=== PATIENT | female | born 1950 | race Caucasian/White ===

== ENCOUNTER 2016-07-26 12:30 | Outpatient (CLI) | payer BC | END 2016-07-26 12:31 | disposition home or self-care (01) | DX: K21.9 Gastro-esophageal reflux disease without esophagitis (principal) ==

== ENCOUNTER 2016-08-12 08:35 | Outpatient (CLI) | payer BC | END 2016-08-12 08:36 | disposition home or self-care (01) | DX: K21.9 Gastro-esophageal reflux disease without esophagitis (principal) ==

== ENCOUNTER 2017-06-26 09:41 | Outpatient (CLI) | payer MEDICARE, BC ==
[2017-06-26 17:44] LABS: BASOPHILS % (AUTO) 0.5 %; EOSINOPHILS # (AUTO) 0.2 10^3/uL (0.0-0.7); EOSINOPHILS % (AUTO) 2.9 %; HCT - HEMATOCRIT 42.6 % (37.0-47.0); LYMPHOCYTES # (AUTO) 2.7 10^3/uL (1.5-3.5); LYMPHOCYTES % (AUTO) 33.4 %; MEAN CORPUSCULAR HEMOGLOBIN 30.6 pg (27.0-31.0); MEAN CORPUSCULAR HGB CONC 32.8 g/dL (32.0-36.0); MEAN CORPUSCULAR VOLUME 93.4 fL (81.0-99.0); MEAN PLATELET VOLUME 9.6 fL (7.9-10.8); MONOCYTES # (AUTO) 0.6 10^3/uL (0.0-1.0); MONOCYTES % (AUTO) 7.5 %; NEUTROPHILS # (AUTO) 4.6 10^3/uL (1.5-6.6); NEUTROPHILS % (AUTO) 55.7 %; RED BLOOD COUNT 4.57 10^6/uL (4.20-5.40); RED CELL DISTRIBUTION WIDTH 13.5 % (12.0-15.0); UNCORRECTED WHITE BLOOD COUNT 8.2 x10^3/uL; WHITE BLOOD COUNT 8.2 x10^3/uL (4.8-10.8)
[2017-06-26 18:04] LABS: HEMOGLOBIN A1C 0.62 g/dL
[2017-06-26 18:12] LABS: ALBUMIN/GLOBULIN RATIO 1.4 (1.0-2.2); BILIRUBIN,TOTAL 0.5 mg/dL (0.2-1.0); BUN - BLOOD UREA NITROGEN 17 mg/dL (6-20); CALCIUM 9.4 mg/dL (8.5-10.3); CARBON DIOXIDE - CO2 28 mmol/L (21-32); CHLORIDE 105 mmol/L (101-111); CHOL/HDL RATIO 3.6 (<4.4); CHOLESTEROL 147 mg/dL; CREATININE 0.9 mg/dL (0.4-1.0); GFR - MDRD 63 (>89); GLUCOSE 105 mg/dL (70-100); HDL CHOLESTEROL 41 mg/dL; LDL/HDL RATIO 1.6 (<4.4); POTASSIUM 4.3 mmol/L (3.5-5.0); SODIUM 138 mmol/L (135-145); TRIGLYCERIDES 203 mg/dL; VLDL CHOLESTEROL 41 mg/dL
== END 2017-06-26 09:42 | disposition home or self-care (01) ==
LOC: LAB.F 09:41
PROVIDERS: ATTEND Physician Assistant Medical
DX: Z51.81 Encounter for therapeutic drug level monitoring (principal); E11.9 Type 2 diabetes mellitus without complications; E78.5 Hyperlipidemia, unspecified; E03.9 Hypothyroidism, unspecified
CPT/HCPCS: 36415; 80053; 80061; 83036; 84443; 85025

== ENCOUNTER 2018-01-02 07:42 | Outpatient (CLI) | payer MEDICARE, BC ==
[2018-01-02 11:46] LABS: ALBUMIN/GLOBULIN RATIO 1.3 (1.0-2.2); ALKALINE PHOSPHATASE 40 IU/L (42-121); ALT ALANINE AMINOTRANSFERASE 33 IU/L (10-60); AST ASPARTATE AMINOTRANSFERASE 32 IU/L (10-42); BILIRUBIN,TOTAL 0.7 mg/dL (0.2-1.0); BUN - BLOOD UREA NITROGEN 20 mg/dL (6-20); CALCIUM 9.5 mg/dL (8.5-10.3); CARBON DIOXIDE - CO2 29 mmol/L (21-32); CHLORIDE 101 mmol/L (101-111); CHOL/HDL RATIO 3.5 (<4.4); CHOLESTEROL 156 mg/dL; CREATININE 0.8 mg/dL (0.4-1.0); GFR - MDRD 72 (>89); GLUCOSE 119 mg/dL (70-100); HDL CHOLESTEROL 44 mg/dL; LDL CHOLESTEROL,CALCULATED 70 mg/dL; LDL/HDL RATIO 1.6 (<4.4); SODIUM 137 mmol/L (135-145); TOTAL PROTEIN 7.1 g/dL (6.7-8.2); VLDL CHOLESTEROL 42 mg/dL
[2018-01-02 12:17] LABS: HEMOGLOBIN A1C 0.62 g/dL; HEMOGLOBIN A1C % 5.7 % (4.6-6.2)
== END 2018-01-02 07:43 | disposition home or self-care (01) ==
LOC: LAB.F 07:42
PROVIDERS: ATTEND Internal Medicine
DX: E78.5 Hyperlipidemia, unspecified (principal); E11.9 Type 2 diabetes mellitus without complications; E03.9 Hypothyroidism, unspecified
CPT/HCPCS: 36415; 80053; 80061; 82043; 83036; 83721; 84443

== ENCOUNTER 2018-09-24 10:27 | Outpatient (CLI) | payer MEDICARE, BC ==
[2018-09-24 18:18] LABS: ALBUMIN 4.1 g/dL (3.2-5.5); ALBUMIN/GLOBULIN RATIO 1.5 (1.0-2.2); BILIRUBIN,TOTAL 0.6 mg/dL (0.2-1.0); CALCIUM 9.5 mg/dL (8.5-10.3); CREATININE 0.8 mg/dL (0.4-1.0); TOTAL PROTEIN 6.9 g/dL (6.7-8.2)
[2018-09-24 18:26] LABS: CREATININE,URINE 144.6 mg/dL; MICROALBUM/CREATININE RATIO,UR 2.8 ug/mg (<30.0); MICROALBUMIN,URINE 0.4 mg/dL (0-300.0)
[2018-09-24 18:45] LABS: HEMOGLOBIN A1C 0.6 g/dL; HEMOGLOBIN A1C % 5.8 % (4.6-6.2)
== END 2018-09-24 10:28 | disposition home or self-care (01) ==
LOC: LAB.F 10:27
PROVIDERS: ATTEND Internal Medicine
DX: E11.9 Type 2 diabetes mellitus without complications (principal); E03.9 Hypothyroidism, unspecified
CPT/HCPCS: 36415; 80053; 82043; 82570; 83036; 84443

== ENCOUNTER 2019-02-28 11:43 | Outpatient (CLI) | payer MEDICARE, BC | END 2019-02-28 11:44 | disposition EMS.NT | LOC: EMS 11:43 | PROVIDERS: ATTEND Surgery | DX: Z04.1 Encounter for examination and observation following transport accident (principal) ==

== ENCOUNTER 2019-03-03 13:19 | Outpatient (CLI) | payer OTHER, MEDICARE, BC ==
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
== END 2019-03-03 13:20 | disposition home or self-care (01) ==
LOC: DI.S 13:19
PROVIDERS: ATTEND Registered Nurse
DX: M51.37 Other intervertebral disc degeneration, lumbosacral region (principal); M47.816 Spondylosis without myelopathy or radiculopathy, lumbar region; M41.86 Other forms of scoliosis, lumbar region; M50.31 Other cervical disc degeneration, high cervical region
CPT/HCPCS: 72050; 72100; 72170

== ENCOUNTER 2019-12-09 07:54 | Outpatient (CLI) | payer MEDICARE, BC ==
[2019-12-09 08:43] LABS: ALBUMIN 4.1 g/dL (3.2-5.5); ALBUMIN/GLOBULIN RATIO 1.3 (1.0-2.2); ALKALINE PHOSPHATASE 54 IU/L (42-121); ALT ALANINE AMINOTRANSFERASE 22 IU/L (10-60); AST ASPARTATE AMINOTRANSFERASE 22 IU/L (10-42); BILIRUBIN,TOTAL 0.6 mg/dL (0.2-1.0); BUN - BLOOD UREA NITROGEN 18 mg/dL (6-20); CALCIUM 9.6 mg/dL (8.5-10.3); CARBON DIOXIDE - CO2 27 mmol/L (21-32); CHLORIDE 103 mmol/L (101-111); CHOL/HDL RATIO 3.1 (<4.4); CHOLESTEROL 146 mg/dL; CREATININE 0.8 mg/dL (0.4-1.0); GLUCOSE 127 mg/dL (70-100); HDL CHOLESTEROL 47 mg/dL; LDL CHOLESTEROL,CALCULATED 71 mg/dL; LDL/HDL RATIO 1.5 (<4.4); SODIUM 139 mmol/L (135-145); TOTAL PROTEIN 7.2 g/dL (6.7-8.2); VLDL CHOLESTEROL 28 mg/dL
[2019-12-09 09:22] LABS: HB2 TOTAL 15.9 g/dL; HEMOGLOBIN A1C 0.62 g/dL; HEMOGLOBIN A1C % 5.7 % (4.6-6.2)
== END 2019-12-09 07:55 | disposition home or self-care (01) ==
LOC: LAB 07:54
PROVIDERS: ATTEND Internal Medicine
DX: E11.9 Type 2 diabetes mellitus without complications (principal); I10 Essential (primary) hypertension; E78.5 Hyperlipidemia, unspecified; E03.9 Hypothyroidism, unspecified
CPT/HCPCS: 36415; 80053; 80061; 83036; 83721; 84443

== ENCOUNTER 2020-08-25 11:33 | Outpatient (CLI) | payer MEDICARE, BC ==
[2020-08-25 15:52] LABS: BASOPHILS # (AUTO) 0.1 10^3/uL (0.0-0.1); BASOPHILS % (AUTO) 0.8 %; EOSINOPHILS # (AUTO) 0.2 10^3/uL (0.0-0.7); EOSINOPHILS % (AUTO) 2.1 %; HGB - HEMOGLOBIN 14.4 g/dL (12.0-16.0); LYMPHOCYTES # (AUTO) 2.5 10^3/uL (1.5-3.5); MEAN CORPUSCULAR HEMOGLOBIN 30.8 pg (27.0-31.0); MEAN CORPUSCULAR HGB CONC 32.1 g/dL (32.0-36.0); MEAN CORPUSCULAR VOLUME 96.1 fL (81.0-99.0); MEAN PLATELET VOLUME 11.9 fL (7.9-10.8); MONOCYTES # (AUTO) 0.5 10^3/uL (0.0-1.0); MONOCYTES % (AUTO) 6.7 %; NEUTROPHILS # (AUTO) 4.2 10^3/uL (1.5-6.6); NEUTROPHILS % (AUTO) 56.1 %; PLT - PLATELET COUNT 184 10^3/uL (130-450); RED BLOOD COUNT 4.67 10^6/uL (4.20-5.40); RED CELL DISTRIBUTION WIDTH 12.9 % (12.0-15.0); WHITE BLOOD COUNT 7.5 x10^3/uL (4.8-10.8)
[2020-08-25 16:21] LABS: ALBUMIN 4.1 g/dL (3.2-5.5); ALBUMIN/GLOBULIN RATIO 1.6 (1.0-2.2); ALKALINE PHOSPHATASE 47 IU/L (42-121); ALT ALANINE AMINOTRANSFERASE 29 IU/L (10-60); AST ASPARTATE AMINOTRANSFERASE 26 IU/L (10-42); BILIRUBIN,TOTAL 0.7 mg/dL (0.2-1.0); BUN - BLOOD UREA NITROGEN 16 mg/dL (6-20); CALCIUM 9.6 mg/dL (8.5-10.3); CARBON DIOXIDE - CO2 28 mmol/L (21-32); CHLORIDE 101 mmol/L (101-111); CHOL/HDL RATIO 3.4 (<4.4); CHOLESTEROL 179 mg/dL; CREATININE 0.9 mg/dL (0.4-1.0); GLUCOSE 105 mg/dL (70-100); HDL CHOLESTEROL 52 mg/dL; LDL CHOLESTEROL,CALCULATED 105 mg/dL; TOTAL PROTEIN 6.7 g/dL (6.7-8.2); VLDL CHOLESTEROL 22 mg/dL
[2020-08-25 16:22] LABS: CREATININE,URINE 49.2 mg/dL; MICROALBUM/CREATININE RATIO,UR 10.2 ug/mg (<30.0); MICROALBUMIN,URINE 0.5 mg/dL (0-300.0)
[2020-08-25 21:13] LABS: HEMOGLOBIN A1c% 6.2 % (4.27-6.07)
== END 2020-08-25 11:34 | disposition home or self-care (01) ==
LOC: LAB.S 11:33
PROVIDERS: ATTEND Physician Assistant
DX: G47.33 Obstructive sleep apnea (adult) (pediatric) (principal); I25.10 Atherosclerotic heart disease of native coronary artery without angina pectoris; E11.9 Type 2 diabetes mellitus without complications; I10 Essential (primary) hypertension; E66.9 Obesity, unspecified; K21.9 Gastro-esophageal reflux disease without esophagitis; E78.5 Hyperlipidemia, unspecified; E03.9 Hypothyroidism, unspecified
CPT/HCPCS: 36415; 80053; 80061; 82043; 82570; 83036; 83721; 84443; 85025

== ENCOUNTER 2020-09-22 08:00 | Outpatient (CLI) | payer MEDICARE, BC | END 2020-09-22 23:59 | disposition home or self-care (01) | LOC: LAB.R 08:00 | PROVIDERS: ATTEND Physician Assistant | DX: Z01.812 Encounter for preprocedural laboratory examination (principal); Z20.822 Contact with and (suspected) exposure to COVID-19 ==

== ENCOUNTER 2020-09-27 06:27 | Day surgery (SDC) | payer MEDICARE, BC ==
[2020-09-27] MEDS ORDERED: CELECOXIB 100 MG CAPSULE PO ONE (06:28)
[2020-09-27] MEDS ORDERED: levoFLOXacin 500 MG/100 ML 500 MG/100 ML BAG IV ONE (06:29)
[2020-09-27] MEDS ORDERED: LACTATED RINGERS 1,000 ML IV ONE ×2 (07:07→11:42)
[2020-09-27] MEDS ORDERED: PROPOFOL 200 MG/20 ML VIAL IVP ONE (07:18)
[2020-09-27] MEDS ORDERED: MIDAZOLAM 2 MG/2 ML VIAL ONE (07:19)
[2020-09-27] MEDS ORDERED: LIDOCAINE-MPF 2% 5 ML VIAL ONE (07:19)
[2020-09-27] MEDS ORDERED: DEXAMETHASONE 4 MG/ML VIAL ONE (07:19)
[2020-09-27] MEDS ORDERED: ROPIVACAINE 0.5% PF 20 ML AMPULE ONE (07:19)
[2020-09-27] MEDS ORDERED: ROCURONIUM 50 MG/5 ML VIAL ONE (07:19)
--- NOTE | 2020-09-27 07:19 | ANESTHESIA ---
Pre-Anesthesia VS, & Labs - Diagnosis torn biceps and rotator cuff - Procedure right shoulder arthroscopy, rotator cuff and biceps tenotomy Vital Signs: Temp Pulse Resp BP Pulse Ox 36.0 C L 67 18 141/64 H 99 09/27/20 06:45 09/27/20 06:45 09/27/20 06:45 09/27/20 06:45 09/27/20 06:45 Height: 5 ft 5 in Weight (kg): 82.1 kg Body Mass Index: 30.1 BMI Classification: Obese - NPO >8 hours - Is Patient ?: No - Lab Results Current Lab Results: Laboratory Tests 09/27/20 07:01: POC Whole Bld Glucose 116 H Home Medications and Allergies Home Medications: Ambulatory Orders ALPRAZolam [Alprazolam] 0.5 mg PO DAILY PRN 09/21/20 Ascorbic Acid [Vitamin C] 1,000 mg PO DAILY 09/21/20 Biotin 5 mg PO DAILY 09/21/20 Metoprolol Tartrate [Lopressor] 25 mg PO BID 09/21/20 [place]-3S/Dha/Epa/Fish Oil [Fish Oil 1,200 mg Softgel] 1 each PO DAILY 09/21/20 Psyllium Husk [Metamucil] 2 cap PO DAILY 09/21/20 Red Yeast Rice 1 cap PO DAILY 09/21/20 Ubidecarenone/Vit E Acet [Co Q-10 100 mg Softgel] 1 each PO DAILY 09/21/20 Amlodipine Besylate 2.5 mg PO QAM 09/10/13 Aspirin [Aspir 81] 81 mg PO DAILY 09/10/13 Cholecalciferol (Vitamin D3) [Vitamin D3] 20,000 unit PO DAILY 09/10/13 Isosorbide Mononitrate ER [Imdur] 30 mg PO DAILY 09/10/13 Metformin HCl 500 mg PO BID 09/10/13 Nitroglycerin [Nitrostat] 0.4 mg SL Q5MIN PRN 09/10/13 Simvastatin [Zocor] 40 mg PO QPM 09/10/13 ALPRAZolam [Alprazolam] 0.5 mg PO DAILY PRN 09/21/20 Ascorbic Acid [Vitamin C] 1,000 mg PO DAILY 09/21/20 Biotin 5 mg PO DAILY 09/21/20 Metoprolol Tartrate [Lopressor] 25 mg PO BID 09/21/20 [place]-3S/Dha/Epa/Fish Oil [Fish Oil 1,200 mg Softgel] 1 each PO DAILY 09/21/20 Psyllium Husk [Metamucil] 2 cap PO DAILY 09/21/20 Red Yeast Rice 1 cap PO DAILY 09/21/20 Ubidecarenone/Vit E Acet [Co Q-10 100 mg Softgel] 1 each PO DAILY 09/21/20 Allergies/Adverse Reactions: Allergies Allergy/AdvReac Type Severity Reaction Status Date / Time clindamycin Allergy Severe Respiratory Verified 09/10/13 10:14 Sulfa (Sulfonamide Allergy Severe Respiratory Verified 09/10/13 10:14 Antibiotics) venom-wasp Allergy Severe Anaphylaxis Verified 09/21/20 13:22 Cephalosporins Allergy Intermediate Rash Verified 09/10/13 10:14 Anes History & Medical History - Anesthetic History Anesthesia Complications: reports: Other-see comment (allergy to antibiotic) - Medical History Cardiovascular: reports: Hypertension, High cholesterol, Coronary artery disease Pulmonary: reports: Sleep apnea Gastrointestinal: reports: GERD, Diverticulitis Urinary: reports: None Musculoskeletal: reports: Osteoarthritis, Fibromyalgia Endocrine/Autoimmune: reports: Type 2 diabetes Skin: reports: Other Smoking Status: Former smoker History of Cancer?: No - Surgical History Eyes Ears Nose Throat (EENT): reports: Tonsil/Adenoidectomy, Other Gynecologic: reports: Endometrial ablation, Dilation and currettage, Tubal ligation, Other Exam General: Alert Dental: WNL Mouth Opening: Greater than 4 Fingerbreadths Neck Mobility: Normal Mallampati classification: II Respiratory: Lungs clear Cardiovascular: Regular rate, Normal S1, Normal S2 Plan Anesthesia Type: General, Interscalene Block Consent for Procedure(s) Verified and Reviewed: Yes Code Status: Attempt Resuscitation ASA classification: 3-Severe systemic disease Is this case an emergency?: No
[2020-09-27] MEDS ORDERED: fentaNYL 100 MCG/2 ML VIAL ONE ×2 (07:20→11:38)
[2020-09-27] MEDS ORDERED: BUPIVACAINE 0.25% PF 30 ML VIAL ONE (07:23)
[2020-09-27] MEDS ORDERED: EPINEPHrine 1 MG/ML AMP ONE (07:23)
[2020-09-27] MEDS ORDERED: MORPHINE 2 MG/ML CARPUJECT IVP PRN (07:24)
[2020-09-27] MEDS ORDERED: METOCLOPRAMIDE 10 MG/2 ML VIAL IVP PRN (07:24)
[2020-09-27] MEDS ORDERED: NALOXONE 0.4 MG/ML VIAL IVP PRN (07:24)
[2020-09-27] MEDS ORDERED: fentaNYL 100 MCG/2 ML VIAL IVP PRN (07:24)
[2020-09-27] MEDS ORDERED: ePHEDrine 50 MG/ML VIAL IVP PRN (07:24)
[2020-09-27] MEDS ORDERED: HYDROmorphone 0.5 MG/0.5 ML SYRINGE IVP PRN (07:24)
[2020-09-27] MEDS ORDERED: ATROPINE ABBOJECT 1 MG/10 ML SYRINGE IVP PRN (07:24)
[2020-09-27] MEDS ORDERED: ONDANSETRON 4 MG/2 ML VIAL IVP PRN (07:24)
[2020-09-27] MEDS ORDERED: GABAPENTIN 400 MG CAPSULE ONE (07:38)
[2020-09-27] MEDS ORDERED: ACETAMINOPHEN 1,000 MG/100 ML 100 ML IV ONE (07:38)
[2020-09-27] MEDS ORDERED: LACTATED RINGERS 1,000 ML IV SCH (08:00)
[2020-09-27] MEDS ORDERED: ONDANSETRON 4 MG/2 ML VIAL ONE (08:36)
[2020-09-27] MEDS ORDERED: ePHEDrine 50 MG/ML VIAL IVP ONE (08:36)
--- NOTE | 2020-09-27 11:24 | OPERATIVE REPORT ---
Operative Report - General Procedure Date: 09/27/20 Planned Procedure: Arthroscopy right shoulder, arthroscopic biceps tenotomy and rotator cuff repair Pre-Op Diagnosis: Torn biceps tendon and rotator cuff right shoulder Procedure Performed: Arthroscopic biceps tenotomy and rotator cuff repair right shoulder using Arthrex single row repair with rip stop stitch Post Op Diagnosis: Same as preoperative diagnosis - Procedure Note Primary Surgeon: John Rainey MD Secondary Surgeon: Jadon BEJARANO Anesthesia Provider: Tere Calderón CRNA Anesthesia Technique: General ET tube, Regional block Estimated Blood Loss (mL): 5 Indications: This is a 69-year-old woman with chronic pain to her right shoulder associated with activities to her right shoulder. She had painful arc of motion, tenderness over the greater tuberosity, pain with can and empty can testing, positive Speed test, MRI scan suggesting biceps tendinosis and a full-thickness supraspinatus rotator cuff tear right shoulder with mild retraction. She tried conservative treatment including physical therapy and has had persistent symptoms Findings: She had a near complete rupture of the long head of the biceps tendon just before insertion into the glenoid. There was a stab of tendon remnant. The glenohumeral joint showed abnormal footprint, fraying of the labrum, subscapularis intact, normal-appearing articular cartilage to glenoid and humeral head. On subacromial arthroscopy there was a full-thickness crescent wound and 1/2 cm tear with about a centimeter of retraction. The remainder of the rotator cuff although appeared thin and friable did not show any complete tear. Complications: None - Other Other Information/Narrative: Patient was brought to the operating room. She is given a interscalene block and general anesthesia. She was positioned in the beachchair positioner with about 60 degrees of elevation of the head. Her head and neck were stabilized with the beachchair positioner and a padded facemask. Her neck was placed in a relatively neutral position. An arm michaels was not available. The right shoulder and upper extremity were prepped and draped in a sterile manner in the usual fashion. A timeout procedure was performed by the entire operating room team and all were in agreement. She did receive levofloxacin because she is allergic to cephalosporins.. The bony landmarks of the shoulder were outlined a sterile marking pen. A posterior portal was established for the arthroscope. The posterior joint was entered with a blunt probe into the glenohumeral joint. The Janak 4 mm 3 degree of black diagnostic arthroscope was utilized in conjunction with the [employer] arthroscopic pump. Inflow was brought through the arthroscope. Complete glenohumeral arthroscopy was performed. An anterior portal was established in the safe triangle under direct visualization. The biceps tendon was debrided, localized synovitis removed and frayed tendon edges were removed with the radiofrequency probe made by [place]. The arthroscope was then introduced into the subacromial space again using the posterior portal. A lateral subacromial portal was used and a bursectomy was performed to visualize the subacromial space and rotator cuff tendon. The tendon tear involves primarily the supraspinatus, a crescent shaped tear with about a centimeter retraction. The tendon was mobilized by removing the bursa surrounding the tear. A cannula was placed anteriorly and in the lateral subacromial portal. The Arthrex repair was utilized using a single row repair. The scorpion was used the past a horizontal mattress fiber tape suture which was taken out the anterior cannula. 2-0 FiberWire was then passed in a horizontal mattress suture but more medial to act as a ripstop stitch. All 4 strands of suture were brought out through the large cannula in the lateral portal. A bone awl was used to make a hole for the 5.5 mm swivel lock. The sutures were taken through the tip of the swivel lock. The swivel lock was introduced through the cannula, sutures were tensioned under direct visualization and the suture anchor was pushed and threaded into the bone hole in the tuberosity. There is seem to be good fixation of the 5.5 mm diameter swivel lock. The suture ends were cut. The incision sites were closed with 3-0 nylon, dry sterile dressing with Xeroform and a sling with a abduction brace was applied to right upper extremity. She tolerated the procedure well. A rn medical surgical was utilized to facilitate with shuttling of suture, suture management and cutting suture.
[2020-09-27] MEDS ORDERED: HYDROcod/ACETAM 5/325 MG TABLET PO PRN (11:39)
[2020-09-27] MEDS ORDERED: KETOROLAC 15 MG/ML VIAL IVP STA (11:39)
--- NOTE | 2020-09-27 12:56 | ANESTHESIA POST OP EVALUATION ---
Anesthesia Post Eval - Post Anesthesia Eval Vitals: Last Vital Signs Temp 36.0 C L 09/27/20 12:24 Pulse 85 09/27/20 12:43 Resp 14 09/27/20 12:43 BP 132/63 H 09/27/20 12:43 Pulse Ox 96 09/27/20 12:43 CV Function Including HR & BP: positive: Stable Pain Control: positive: Satisfactory Nausea & Vomiting: positive: Negative Mental Status: positive: Baseline Respiratory Status: Airway Patent Hydration Status: Satisfactory Anesthesia Complications: positive: None
[2020-09-27 12:59] VITALS: BP 128/57
== END 2020-09-27 06:28 | disposition home or self-care (01) ==
LOC: SDS 06:27
PROVIDERS: ATTEND Orthopaedic Surgery
DX: M75.111 Incomplete rotator cuff tear or rupture of right shoulder, not specified as traumatic (principal); M67.813 Other specified disorders of tendon, right shoulder; E11.9 Type 2 diabetes mellitus without complications; M32.9 Systemic lupus erythematosus, unspecified; I10 Essential (primary) hypertension; E78.5 Hyperlipidemia, unspecified; E03.9 Hypothyroidism, unspecified; I25.119 Atherosclerotic heart disease of native coronary artery with unspecified angina pectoris; G47.33 Obstructive sleep apnea (adult) (pediatric); K21.9 Gastro-esophageal reflux disease without esophagitis; M79.7 Fibromyalgia; F41.9 Anxiety disorder, unspecified; F32.9 Major depressive disorder, single episode, unspecified; M19.90 Unspecified osteoarthritis, unspecified site; E66.9 Obesity, unspecified; Z68.30 Body mass index [BMI] 30.0-30.9, adult; Z79.82 Long term (current) use of aspirin; Z79.891 Long term (current) use of opiate analgesic; Z79.84 Long term (current) use of oral hypoglycemic drugs; Z79.899 Other long term (current) drug therapy; Z87.891 Personal history of nicotine dependence
CPT/HCPCS: 29827; 29828; A9270; C1713; J0131; J7120

== ENCOUNTER 2021-10-05 09:47 | Outpatient (CLI) | payer MEDICARE, BC ==
[2021-10-05 15:22] LABS: BASOPHILS # (AUTO) 0.1 10^3/uL (0.0-0.1); BASOPHILS % (AUTO) 0.9 %; EOSINOPHILS # (AUTO) 0.1 10^3/uL (0.0-0.7); EOSINOPHILS % (AUTO) 2.1 %; HCT - HEMATOCRIT 45.1 % (37.0-47.0); HGB - HEMOGLOBIN 14.6 g/dL (12.0-16.0); LYMPHOCYTES # (AUTO) 2.3 10^3/uL (1.5-3.5); LYMPHOCYTES % (AUTO) 34.3 %; MEAN CORPUSCULAR HEMOGLOBIN 30.9 pg (27.0-31.0); MEAN CORPUSCULAR HGB CONC 32.4 g/dL (32.0-36.0); MEAN CORPUSCULAR VOLUME 95.6 fL (81.0-99.0); MONOCYTES # (AUTO) 0.6 10^3/uL (0.0-1.0); MONOCYTES % (AUTO) 9.2 %; NEUTROPHILS # (AUTO) 3.5 10^3/uL (1.5-6.6); NEUTROPHILS % (AUTO) 53.3 %; PLT - PLATELET COUNT 214 10^3/uL (130-450); RED BLOOD COUNT 4.72 10^6/uL (4.20-5.40); RED CELL DISTRIBUTION WIDTH 12.9 % (12.0-15.0); WHITE BLOOD COUNT 6.6 x10^3/uL (4.8-10.8)
[2021-10-05 17:16] LABS: ALBUMIN 4.2 g/dL (3.2-5.5); ALBUMIN/GLOBULIN RATIO 1.7 (1.0-2.2); ALKALINE PHOSPHATASE 48 IU/L (42-121); ALT ALANINE AMINOTRANSFERASE 34 IU/L (10-60); AST ASPARTATE AMINOTRANSFERASE 30 IU/L (10-42); BILIRUBIN,TOTAL 0.5 mg/dL (0.2-1.0); BUN - BLOOD UREA NITROGEN 18 mg/dL (6-20); CALCIUM 9.6 mg/dL (8.5-10.3); CARBON DIOXIDE - CO2 28 mmol/L (21-32); CHLORIDE 101 mmol/L (101-111); CHOL/HDL RATIO 3.2 (<4.4); CHOLESTEROL 143 mg/dL; CREATININE 0.9 mg/dL (0.4-1.0); GFR - MDRD 62 (>89); GLUCOSE 115 mg/dL (70-100); HDL CHOLESTEROL 45 mg/dL; LDL CHOLESTEROL,CALCULATED 76 mg/dL; LDL/HDL RATIO 1.7 (<4.4); POTASSIUM 4.5 mmol/L (3.5-5.0); SODIUM 139 mmol/L (135-145); TOTAL PROTEIN 6.7 g/dL (6.7-8.2); TRIGLYCERIDES 110 mg/dL; VLDL CHOLESTEROL 22 mg/dL
[2021-10-05 17:17] LABS: THYROID STIMULATING HORMONE 2.59 uIU/mL (0.34-5.60)
== END 2021-10-05 09:48 | disposition home or self-care (01) ==
LOC: LAB.S 09:47
PROVIDERS: ATTEND Registered Nurse
DX: I10 Essential (primary) hypertension (principal); E78.5 Hyperlipidemia, unspecified; E03.9 Hypothyroidism, unspecified; G47.33 Obstructive sleep apnea (adult) (pediatric)
CPT/HCPCS: 36415; 80053; 80061; 83721; 84443; 85025